=== PATIENT | female | born 1955 | race Caucasian/White ===

== ENCOUNTER → 2016-08-26 | Outpatient (CLI) | payer BC, OTHER ==
[~2016-08-26] MED LIST: EFFEXOR XR75 MG PO
== END ==
LOC: KOH-I 11:46
DX: J18.0 Bronchopneumonia, unspecified organism (principal); R91.8 Other nonspecific abnormal finding of lung field
CPT/HCPCS: 71020

== ENCOUNTER → 2016-09-06 | Outpatient (CLI) | payer BC, OTHER | LOC: KOH-I 09:04 | DX: R07.81 Pleurodynia (principal); R05 Cough; M84.48XA Pathological fracture, other site, initial encounter for fracture | CPT/HCPCS: 71101 ==

== ENCOUNTER 2020-05-17 01:02 | Inpatient (IN) | payer MEDICARE, OTHER ==
[~2020-05-17] VITALS: Ht 165.1 cm; Wt 99.8 kg
[2020-05-17 01:23] LABS: HEMOGLOBIN 16.7 gm/dl (12.3-15.3); RED BLOOD COUNT 5.57 M/UL (4.00-5.10); WHITE BLOOD COUNT 21.1 K/UL (4.5-11.0)
[2020-05-17 01:35] LABS: BUN/CREATININE RATIO 29 (0-10)
[2020-05-17] MEDS ORDERED: PRILOSEC OTC20 MG PO (17:46)
[2020-05-17] MEDS ORDERED: CRESTOR10 MG PO (17:46)
[2020-05-17] MEDS ORDERED: MOBIC7.5 MG PO (17:47)
[2020-05-18 04:57] LABS: HEMOGLOBIN 13.8 gm/dl (12.3-15.3); RED BLOOD COUNT 4.67 M/UL (4.00-5.10); WHITE BLOOD COUNT 6.7 K/UL (4.5-11.0)
[2020-05-18 05:09] LABS: BUN/CREATININE RATIO 16 (0-10)
[2020-05-19 03:45] LABS: BUN/CREATININE RATIO 18 (0-10)
[2020-05-19 09:14] LABS: ADENOVIRUS F 40/41 Not Detected (Not Detected); ASTROVIRUS Not Detected (Not Detected); C DIFFICILE TOXIN A/B Not Detected (Not Detected); CAMPYLOBACTER Not Detected (Not Detected); CRYPTOSPORIDIUM Not Detected (Not Detected); CYCLOSPORA CAYETANENSIS Not Detected (Not Detected); ENTAMOEBA HISTOLYTICA Not Detected (Not Detected); ENTEROAGGREGATIVE E COLI Detected (Not Detected); ENTEROPATHOGENIC E COLI Not Detected (Not Detected); ENTEROTOXIGENIC E COLI Not Detected (Not Detected); GIARDIA LAMBLIA Not Detected (Not Detected); NOROVIRUS GI/GII Detected (Not Detected); PLESIOMONAS SHIGELLOIDES Not Detected (Not Detected); ROTAVIRUS A Not Detected (Not Detected); SALMONELLA Not Detected (Not Detected); SAPOVIRUS Not Detected (Not Detected); SHIGA-TOXIN-PRODUCING E COLI Not Detected (Not Detected); SHIGELLA/ENTEROINVASIVE E COLI Not Detected (Not Detected); VIBRIO Not Detected (Not Detected); VIBRIO CHOLERAE Not Detected (Not Detected); YERSINIA ENTEROCOLITICA Not Detected (Not Detected)
--- NOTE | 2020-05-19 13:50 | NUR ---
CALLED DR DAUGHERTY PER PATIENTS REQUEST FOR TYLENOL FOR BACK PAIN. PROVIDER GAVE AN ORDER FOR 650 PRN Q6 OVER THE PHONE WITH READ BACK.
[2020-05-19] MEDS ORDERED: K-TAB ER20 MEQ PO (14:37)
[2020-05-20 05:09] LABS: ADENOVIRUS F 40/41 Not Detected (Not Detected); ASTROVIRUS Not Detected (Not Detected); C DIFFICILE TOXIN A/B Not Detected (Not Detected); CAMPYLOBACTER Not Detected (Not Detected); CRYPTOSPORIDIUM Not Detected (Not Detected); CYCLOSPORA CAYETANENSIS Not Detected (Not Detected); ENTAMOEBA HISTOLYTICA Not Detected (Not Detected); ENTEROAGGREGATIVE E COLI Detected (Not Detected); ENTEROPATHOGENIC E COLI Not Detected (Not Detected); ENTEROTOXIGENIC E COLI Not Detected (Not Detected); GIARDIA LAMBLIA Not Detected (Not Detected); NOROVIRUS GI/GII Detected (Not Detected); PLESIOMONAS SHIGELLOIDES Not Detected (Not Detected); ROTAVIRUS A Not Detected (Not Detected); SALMONELLA Not Detected (Not Detected); SAPOVIRUS Not Detected (Not Detected); SHIGA-TOXIN-PRODUCING E COLI Not Detected (Not Detected); SHIGELLA/ENTEROINVASIVE E COLI Not Detected (Not Detected); VIBRIO Not Detected (Not Detected); VIBRIO CHOLERAE Not Detected (Not Detected); YERSINIA ENTEROCOLITICA Not Detected (Not Detected)
== END 2020-05-19 17:31 | disposition home or self-care (01) | DRG 391 ==
LOC: ER1 01:02 → MED SURG 4 04:55 → CDU 04:55 → MED SURG 4 17:22
PROVIDERS: Family Medicine; Internal Medicine Infectious Disease; ADMIT Internal Medicine
PROC: 8E0ZXY6 Isolation (ICD-10-PCS; principal; 2020-05-17)
DX: A08.4 Viral intestinal infection, unspecified (principal); U07.1 COVID-19; E87.2 Acidosis; E87.6 Hypokalemia; K21.9 Gastro-esophageal reflux disease without esophagitis; D72.829 Elevated white blood cell count, unspecified; E83.42 Hypomagnesemia; E86.0 Dehydration; Z79.899 Other long term (current) drug therapy; Z86.16 Personal history of COVID-19; Z20.822 Contact with and (suspected) exposure to COVID-19; Z85.72 Personal history of non-Hodgkin lymphomas; E78.5 Hyperlipidemia, unspecified; F41.9 Anxiety disorder, unspecified; Z88.2 Allergy status to sulfonamides; K76.0 Fatty (change of) liver, not elsewhere classified; E66.9 Obesity, unspecified; Z96.652 Presence of left artificial knee joint; Z85.3 Personal history of malignant neoplasm of breast; Z90.49 Acquired absence of other specified parts of digestive tract; Z82.3 Family history of stroke; K44.9 Diaphragmatic hernia without obstruction or gangrene
CPT/HCPCS: 36415; 71045; 80048; 80053; 81001; 82550; 82553; 83605; 83690; 83735; 84132; 84484; 85025; 85027; 87040; 87507; 93005; 96374; 96375; 99285; J1650; J1956; J2270; J2405; J2550; J3475; J3480; J7121; Q9967; U0002